=== PATIENT | male | born 1960 | race Caucasian/White ===

== ENCOUNTER → 2022-04-14 15:37 | Outpatient (CLI) | payer OTHER, SELFPAY ==
--- NOTE | 2022-04-14 15:47 | DI.US.S_ITS ---
PROCEDURE: US PERIPH VENOUS LOW EXTREM LT INDICATIONS: LEFT LEG SWELLING TECHNIQUE: Real-time imaging, as well as color and pulse Doppler interrogation, were performed of the lower extremity deep veins from the inguinal ligament to the popliteal fossa. COMPARISON: None. FINDINGS: The common femoral, femoral and popliteal veins are normally compressible, and free of intraluminal thrombus. Color and pulse Doppler demonstrate normal phasic intraluminal flow. There is normal augmentation response to distal compression maneuver. IMPRESSION: No DVT in the left lower extremity. Dictated by: Arianna Juarez M.D. on 04/14/2022 at 16:19 Approved by: Arianna Juarez M.D. on 04/14/2022 at 16:43
== END ==
PROVIDERS: Referring Provider Physical Medicine & Rehabilitation; Visit Provider Physical Medicine & Rehabilitation
DX: M79.89 Other specified soft tissue disorders (principal)
CPT/HCPCS: 93971